=== PATIENT | female | born 1965 | race Caucasian/White ===

== ENCOUNTER → 2023-12-13 11:26 | Outpatient (REF) | payer BC, SELFPAY | LOC: HWWDC 11:26 | PROVIDERS: ATTENDING PHYSICIAN Obstetrics & Gynecology; FAMILY PHYSICIAN Physician Assistant Medical | DX: Z12.31 Encounter for screening mammogram for malignant neoplasm of breast (principal) | CPT/HCPCS: 77063; 77067 ==

== ENCOUNTER → 2024-12-26 16:29 | Outpatient (REF) | payer BC, SELFPAY | LOC: WDC 16:29 | PROVIDERS: ATTENDING PHYSICIAN Obstetrics & Gynecology; FAMILY PHYSICIAN Physician Assistant Medical | DX: Z12.31 Encounter for screening mammogram for malignant neoplasm of breast (principal) | CPT/HCPCS: 77063; 77067 ==

== ENCOUNTER 2025-05-26 10:11 | Emergency (ER) | payer BC, SELFPAY ==
[2025-05-26 10:18] VITALS: BP 175/86
--- NOTE | 2025-05-26 11:25 | ED.GENMED ---
History of Present Illness
General
Chief Complaint: Bowel Problem
Source: patient
Exam Limitations: none
Time Seen by Provider: 05/26/25 10:52
Nursing documentation reviewed up to this point in time: agreed with
History of Present Illness
History of Present Illness:
60 yo female with hx HTN, HLD, appendectomy, hysterectomy, bladder sling w mesh presents stating while walking yesterday felt 'pressure' in rectal and vaginal areas 'like something is hanging.'
Does have frequent constipation w BM's every 2-3 days. Last BM 3 days ago. Denies vaginal discharge. Denies n/v. Denies abdominal pain. Moving around makes the pressure sensation worse.
Past History
Past History
ED Past Medical History: HTN and Hypercholesterolemia
ED Past Surgical History: Appendectomy and Urological (bladder mesh sling)
Social History
Tobacco: Non-smoker
Personal:
Living: with family
Family History
Family History: Other (Uncontributory)
Review of Systems
Review of Systems
Allergies reviewed?: Yes
All Other Systems: ROS reviewed and negative except as documented in HPI and ROS
Phy Exam
Physical Exam
Physical Exam:
GENERAL: No acute distress. A&Ox3.
CONSTITUTIONAL: Afebrile.
EYES: clear, conjunctivae normal
ENMT: moist mucus membranes, Pharynx nl
RESPIRATORY: Regular respirations, nonlabored, lungs clear.
CARDIOVASCULAR: Regular rate and rhythm, no murmurs, no rubs.
GI: Soft, nontender, normal BS
Rectal exam: No stool in rectal vault, nontender, no palpable masses, no visible hemorrhoids
: Speculum exam reveals normal vaginal mucosa with small amount of white vaginal discharge. Manual exam: Nontender. Several areas of firm round mass, various sizes both sides and center (stool?)
MUSCULOSKELETAL: Moves with ease. Well perfused.
SKIN: Warm, dry, pink
PSYCH: Normal mood and affect. Well kept, interactive and appropriate
NEUROLOGIC: Awake, alert and oriented. No focal neurological deficits
Course
Orders/Labs/Results
Orders:
Orders
05/26/25 11:18
US Pelvis W Transvag Combined Urgent
Reason For Exam: 'pressure' vaginal and rectal areas
05/26/25 11:19
CR Abdomen - 1 View Urgent
Comment:
Reason For Exam: feels constipated
05/26/25 14:21
Magnesium Citrate [Citroma] 300 ml PO ONCE ONE
Vital Signs
Initial and Last Documented VS:
Initial Vital Signs
Temp Pulse Resp BP Pulse Ox
97.8 F 91 16 175/86 98
05/26/25 10:18 05/26/25 10:18 05/26/25 10:18 05/26/25 10:18 05/26/25 10:18
Last Documented Vital Signs
Temp Pulse Resp BP Pulse Ox
97.8 F 63 17 145/98 99
05/26/25 10:18 05/26/25 13:50 05/26/25 13:50 05/26/25 13:50 05/26/25 13:50
MDM/Problems Addressed
Differential Diagnosis Includes:
constipation, abdominal mass
MDM/Problems Addressed:
60 yo female with hx HTN, HLD, appendectomy, hysterectomy, bladder sling w mesh presents stating while walking yesterday felt 'pressure' in rectal and vaginal areas 'like something is hanging.'
Does have frequent constipation w BM's every 2-3 days. Last BM 3 days ago. Denies vaginal discharge. Denies n/v. Denies abdominal pain. Moving around makes the pressure sensation worse.
Pt has her own GI doctor, had colonoscopy last year.
1:30 PM:
1 view abdominal film reveals nonobstructive bowel gas pattern, severe colonic stool burden.
2:30 PM:
Pelvic ultrasound radiology report reviewed: Prior hysterectomy. Nonvisualization of the right ovary. Unremarkable left ovary. No free pelvic fluid.
Final diagnosis: Constipation
*Pulse Oximetry
SaO2: 98
Oxygen Mode of Delivery: Room air
Patient hypoxic: not evaluated
*Critical Care Note
Total Time (30-74mins, 75-104mins- exclusive of procedures): Not Applicable
ED Attending Note
-
Portions of this chart may have been created with voice recognition software.� Occasional wrong word or��sound alike� substitutions may have occurred due to the inherent limitations of voice recognition software.
Discharge Plan
Departure
Patient Disposition: Home (Routine Discharge)
Date of Disposition: 05/26/25
Time of Disposition: 14:24
Patient with high blood pressure during this ER visit?: No
Condition: Good
Discharge Problem:
Constipation
Instructions: Constipation, Adult (DC)
Prescriptions:
No Action
latanoprost 1 DROP drops
1 drp BOTH EYES DAILY
norethindrone acetate 5 MG tablet
5 mg PO . DIRECTED
Patient Comments:
pt states takes as a taper for vaginal bleeding
Referrals:
Valery Wilder PA [Family Provider, General] - As needed
Activity Restrictions/Additional Instructions:
As we discussed, you have a large amount of stool throughout the colon. This is most likely the cause of your symptoms.
Drink the entire bottle of mag citrate when you go home. Start taking daily stool softeners and MiraLAX, drink plenty of fluids
Interventions
Interventions:
*Risk Screen - Suicide Last Done: 05/26/25 10:18
*General Assessment Last Done: 05/26/25 12:06
*Neglect/Abuse Screening Last Done: 05/26/25 10:18
*ED- Fall Risk Assessment Last Done: 05/26/25 12:06
*ED COVID-19 Vaccine History Last Done: 05/26/25 12:06
*ED Influenza Vaccine History Last Done: 05/26/25 12:06
*Nursing Disposition Last Done: 05/26/25 14:32
PM-Pplgaf-Sqqmfxcffe Assessment Last Done: 05/26/25 12:00
Discharge Date and Time
Discharge Date/Time: 05/26/25 14:33
Print Language: TURKISH
[2025-05-26 12:05] VITALS: BMI 19.7
[2025-05-26 13:50] VITALS: BP 145/98
[2025-05-26] MEDS: CITROMA 300 ML PO (14:32)
== END 2025-05-26 14:33 | disposition home or self-care (01) ==
LOC: EMR 10:11
PROVIDERS: EMERGENCY PHYSICIAN Emergency Medicine; FAMILY PHYSICIAN Physician Assistant Medical
DX: K59.00 Constipation, unspecified (principal); I10 Essential (primary) hypertension; E78.00 Pure hypercholesterolemia, unspecified; Z90.710 Acquired absence of both cervix and uterus; Z90.49 Acquired absence of other specified parts of digestive tract
CPT/HCPCS: 99284; 74018; 76830; 76856

== ENCOUNTER → 2025-06-08 07:31 | Outpatient (REF) | payer BC, SELFPAY | LOC: RAD 07:31 | PROVIDERS: ATTENDING PHYSICIAN Obstetrics & Gynecology; FAMILY PHYSICIAN Physician Assistant Medical | DX: Z78.0 Asymptomatic menopausal state (principal) | CPT/HCPCS: 77080 ==